=== PATIENT | female | born 1990 | race Caucasian/White ===

== ENCOUNTER 2017-02-25 14:11 | Emergency (ER) | payer OTHER ==
[~2017-02-25] VITALS: Ht 165.1 cm; Wt 113.6 kg
[~2017-02-25 14:11] MED LIST: LEVO100T97 PO; OXYC5TAB72 PO
[2017-02-25 14:14] VITALS: BP 126/70; PULSE 96; RESP 20; O2SAT 99
--- NOTE | 2017-02-25 15:02 | ED.REPORT ---
HPI-Psychiatric Illness Date of Service Feb 25, 2017 ED Provider: Dr. Forte Pt is a 26 year old female with a history of anxiety and depression who presents to the ED with concerns for increasing anxiety and depression, gradually worsening in the past several weeks. Pt states that her symptoms have been getting so severe that she is unable to sleep at night, maintain her education or a job and this has been making everything worse. She repots that she has had these symptoms for 2 years and has not been able to have alleviation with medications. Pt states that her parents urged her to come in to the ED today for evaluation. Pt declines any current suicidal ideation. She admits to multiple stressors in her life. Nursing Notes Stated Complaint: MENTAL HEALTH Chief Complaint: Psychiatric Complaint Nursing Notes Reviewed: Yes Allergies: Coded Allergies: No Known Allergies (Verified Allergy, Unknown, 02/25/17) Scheduled Citalopram (Citalopram) 20 Mg Tablet 20 MG PO DAILY Levothyroxine (Synthroid) 100 Mcg Tablet 125 MCG PO HS General Time Seen by MD: 15:01 Chief Complaint Anxious Hx Obtained From: Patient, Other family... (Mother) Arrived By: Walk-in Onset Occurred: Onset unknown Symptom Duration: Intermittent Severity: Current: No pain currently Severity: Maximum: No pain Similar Sx Previous: Yes Risk-Psychiatric Illness Suicide Risk Stratification RF Statements: Risk factors reviewed Past Medical History Past Medical History Dysmenorrhea Pilonidal cyst Gallstones Reports: Thyroid disease Past Surgical History Sinus surgery Reports: Cholecystectomy Family History Noncontributory Smoking History Never Smoker Social History Alcohol Use: "Social" Drug Use: Denies drug use Other Social History: Good social support, Local resident Ambulatory Status Independent Review of Systems Constitutional: Denies: Chills, Fever, Malaise, Weakness - generalized Respiratory: Denies: Non-productive cough, Shortness of breath, Wheezing Cardiovascular: Denies: Chest pain, Syncope GI: Denies: Abdominal pain, Constipation, Diarrhea, Nausea, Vomiting Neurologic: Denies: Change LOC, Dizziness, Headache, Syncope, Weakness Psychiatric: Reports: Anxiety, Depression Complete sys rev & neg: except as marked. Physical Exam Nursing note and vitals reviewed. Constitutional: Well-developed, well-nourished. Not diaphoretic. Head: Normocephalic and atraumatic. Mouth/Throat: Oropharynx is clear and moist. No oropharyngeal exudate. Eyes: EOM are normal. Pupils are equal, round, and reactive to light. Neck: Supple, no tracheal deviation. Cardiovascular: Normal rate, regular rhythm. Equal and intact distal pulses throughout. Pulmonary/Chest: Effort normal and breath sounds normal. No respiratory distress. Abdominal: Soft. No distension. There is no tenderness, rebound, or guarding. Bowel sounds present Musculoskeletal: Range of motion grossly intact, moving all extremities. No edema or tenderness appreciated. Neurological: AOx3. Grossly nonfocal exam. Strength and sensation intact and equal to bilateral upper and lower extremities. Skin: Warm and dry, no rashes or pallor appreciated. Psychiatric: Appropriate mood and affect. Behavior appears normal. Declines SI or HI. Anxious Initial Vital Signs Vital Signs (First) Date Time Temp Pulse Resp B/P Pulse Ox O2 Delivery O2 Flow Rate FiO2 02/25/17 14:14 36.6 96 20 126/70 99 Room Air Initial VS: Reviewed General/Constitutional: Awake, Alert Neurologic: Oriented X3, Speech NL, No motor deficits, No sensory deficits, CN II - XII intact Psychiatric: Affect NL, Mood NL, Not homicidal, No hallucinations, Cognitive function NL, Judgment/insight NL, Thought content NL Abnormal Mood/Affect: Positive: Anxious Interpretation & Diagnostics Lab Results Interpretation Result Diagram: 02/25/17 1544 02/25/17 1544 Test 02/25/17 14:25 02/25/17 15:44 Hold Urine Received (Received) White Blood Count 11.2th/mm3 (3.8-10.1) Red Blood Count 5.90mil/mm3 (3.90-5.20) Hemoglobin 17.3g/dL (12.0-15.6) Hematocrit 51.0% (35.0-46.0) Mean Corpuscular Volume 86.4fL (81-100) Mean Corpuscular Hemoglobin 29.3pg (27.0-35.0) Mean Corpuscular Hemoglobin Concent 33.9% (32.0-37.0) Red Cell Distribution Width 12.9% (12.3-15.4) Platelet Count 314bil/L (150-400) Neutrophils (%) (Auto) 73.2% (40-74) Lymphocytes (%) (Auto) 18.6% (14-46) Monocytes (%) (Auto) 7.0% (4-12) Eosinophils (%) (Auto) 0.6% (0-5) Basophils (%) (Auto) 0.2% (0-3) Sodium Level 137mEq/L (134-144) Potassium Level 4.1mEq/L (3.5-5.2) Chloride Level 100mEq/L (97-108) Carbon Dioxide Level 21mmol/L (18-29) Blood Urea Nitrogen 12mg/dL (6-20) Creatinine 0.89mg/dL (0.57-1.00) Estimat Glomerular Filtration Rate 112mL/min (>59) Glucose Level 77mg/dL (60-99) Calcium Level 10.2mg/dL (8.5-10.1) Total Bilirubin 1.1mg/dL (0.0-1.2) Aspartate Amino Transf (AST/SGOT) 37U/L (0-50) Alanine Aminotransferase (ALT/SGPT) 67U/L (0-32) Alkaline Phosphatase 83U/L (25-150) Total Protein 8.2g/dL (6.4-8.4) Albumin 4.5g/dL (3.4-5.0) Thyroid Stimulating Hormone (TSH) 9.230uIU/mL (0.450-4.500) Re-Eval/Medical Decision Med Decision/Clinical Course 26-year-old female presenting to the ED for evaluation of worsening depression and suicidal thoughts earlier today. She is currently denying any suicidal ideations at this time and has never had a plan. She came in today because she wanted to get help and had nowhere else to turn. She was given 1 mg of Ativan by mouth here in the ED. Mother can take her home and she has a follow-up appointment tomorrow. She does have a elevated TSH and is currently undergoing treatment for hypothyroidism. Given that her primary care provider has been following her for this recently and she has an appointment there tomorrow, she can discuss any medication changes with them at that time. Given that she is able to contract for safety and after discussion with social media campaign manager, decision made to discharge the patient home with careful return precautions, PCP follow- up, and outpatient resources for mental health. Patient agreeable to the plan as stated, no further questions. Source of Hx: Old records, Family Re-Evaluation/Progress : Time of Eval: 18:48 Re-Evaluation/Progress Note: Pt is rechecked and informed of her diagnosis and the plan to discharge her tomorrow with close follow-up. She understands and agrees, all questions are addressed. Counseled Regarding: Diagnosis, Lab results, Need for follow-up, When/why to return to ED Discharge & Departure Impression: Primary Impression: Anxiety Additional Impression: Depression Depression Type: unspecified Qualified Code: F32.9 - Major depressive disorder, single episode, unspecified Disposition: Home Discharge Condition All VS Reviewed: Yes Condition: Stable Patient Instructions: Anxiety (GEN) Additional Instructions: You made the right decision seeking care in the emergency department today. Please keep your appointment with your primary care provider, and use the resources that were provided to you today. Return to the emergency department with any thoughts of harming yourself or others, or if you feel that you are having a medical or psychiatric emergency. I hope that you start to feel better soon. Referrals: Lian Taylor MD (PCP) Wood Attestation Portions of this note were transcribed by Debbie Matute. I, Dr. Forte personally performed the history, physical exam and medical decision-making; I reviewed and confirmed the accuracy of the information in the transcribed note. Signed by: Wood Lieberman, 02/25/2017 18:04 copies to: Lian Taylor MD, William B MD Feb 25, 2017 15:02 JOSE MATUTE Feb 25, 2017 18:05
[2017-02-25] MEDS ORDERED: CITA20TA11 PO (15:04)
[2017-02-25 15:56] LABS: BASOPHILS % (AUTO) 0.2 % (0-3); EOSINOPHILS % (AUTO) 0.6 % (0-5); Mean Corpuscular Hemoglobin 29.3 pg (27.0-35.0); Mean Corpuscular Volume 86.4 fL (81-100); NEUTROPHILS % (AUTO) 73.2 % (40-74); Platelet Count 314 bil/L (150-400)
[2017-02-25] MEDS ORDERED: LORazepam 1 mg Tablet PO ONE (18:15)
== END 2017-02-25 18:25 | disposition home or self-care (01) ==
LOC: SED 14:11
DX: F41.9 Anxiety disorder, unspecified (principal); F32.9 Major depressive disorder, single episode, unspecified